=== PATIENT | male | born 1985 | race Caucasian/White ===

== ENCOUNTER 2017-03-14 01:01 | Emergency (ER) | payer OTHER ==
[~2017-03-14] VITALS: Ht 167.6 cm; Wt 108.9 kg
[2017-03-14] MEDS ORDERED: TOPI200T4 PO (01:32)
[2017-03-14] MEDS ORDERED: ZYRT10TA2 PO (01:32)
[2017-03-14] MEDS ORDERED: PRAZ5CAP PO (01:32)
[2017-03-14] MEDS ORDERED: LIDOCAINE 1% MDV 20ML VIAL As Ordered ONE (05:04)
[2017-03-14 05:36] VITALS: BP 115/88
== END 2017-03-14 05:38 | disposition home or self-care (01) ==
LOC: M ED 04:12
DX: S61.412A Laceration without foreign body of left hand, initial encounter (principal); W26.8XXA Contact with other sharp object(s), not elsewhere classified, initial encounter; Y92.59 Other trade areas as the place of occurrence of the external cause; Y93.89 Activity, other specified; Y99.0 Civilian activity done for income or pay; Z79.899 Other long term (current) drug therapy

== ENCOUNTER 2017-03-15 10:35 | Emergency (ER) | payer OTHER ==
[~2017-03-15] VITALS: Ht 167.6 cm; Wt 108.9 kg
[2017-03-15 10:35] VITALS: BP 133/81
[~2017-03-15 10:35] MED LIST: PRAZ5CAP PO; TOPI200T4 PO; ZYRT10TA2 PO
== END 2017-03-15 11:09 | disposition home or self-care (01) ==
LOC: M ED 10:54
DX: Z48.02 Encounter for removal of sutures (principal); R51 Headache; Z79.899 Other long term (current) drug therapy; F32.9 Major depressive disorder, single episode, unspecified; J30.9 Allergic rhinitis, unspecified

== ENCOUNTER → 2017-06-06 | Outpatient (REF) | payer OTHER ==
[~2017-06-06] MED LIST changes: -TOPI200T4 PO; +TOPI200T7 PO
== END ==
LOC: M WUC 11:44
PROVIDERS: ATTEND Physician Assistant
DX: L02.416 Cutaneous abscess of left lower limb (principal)

== ENCOUNTER → 2018-03-13 | Outpatient (REF) | payer OTHER | LOC: M LAB REF 09:15 | DX: L02.415 Cutaneous abscess of right lower limb (principal) ==

== ENCOUNTER → 2019-01-07 | Outpatient (CLI) | payer OTHER ==
[~2019-01-07] MED LIST changes: +ZYRT10CA5 PO; -ZYRT10TA2 PO
--- NOTE | 2019-01-07 15:40 | REP ---
PARTIAL LUMBAR SPINE, THREE VIEWS: HISTORY: Back pain. There is no acute fracture or subluxation. The L4-5 intervertebral disc is decreased in height consistent with disc degeneration. IMPRESSION: Degenerative change as described above. Electronically Signed by Denis Galvan MD 01/07/2019 03:44 P
== END ==
LOC: M WUC 15:13
PROVIDERS: ATTEND Physician Assistant
DX: M51.36 Other intervertebral disc degeneration, lumbar region (principal); M54.5 Low back pain

== ENCOUNTER → 2019-08-30 | Outpatient (CLI) | payer OTHER ==
--- NOTE | 2019-08-30 19:40 | REP ---
Nasal bone series: Three views. History: Injury. Findings: Maxillary sinus, orbital margins, frontal sinuses, nasal bone appear intact on the Wagoner view. Lateral views demonstrate no evidence of nasal bone fracture. The inferior maxillary spine is intact. Impression: Negative nasal bone radiographs. Electronically Signed by Ruy Cameron MD 08/30/2019 07:31 P
== END ==
LOC: M WUC 18:19
PROVIDERS: ATTEND Physician Assistant
DX: S00.33XA Contusion of nose, initial encounter (principal); X58.XXXA Exposure to other specified factors, initial encounter; Y92.9 Unspecified place or not applicable

== ENCOUNTER 2019-09-15 10:40 | Emergency (ER) | payer OTHER ==
[~2019-09-15] VITALS: Ht 167.6 cm; Wt 109.9 kg
[2019-09-15 10:41] VITALS: BP 129/83
[2019-09-15] MEDS ORDERED: GABA-1171 PO (10:47)
[2019-09-15] MEDS ORDERED: LAMO200T2 PO (10:47)
[2019-09-15] MEDS ORDERED: MONT10TA2 PO (10:47)
[2019-09-15] MEDS ORDERED: HYDR-3363 PO (10:47)
[2019-09-15] MEDS ORDERED: TRAZ-252 PO (10:47)
[2019-09-15] MEDS ORDERED: GABA-843 PO (10:47)
[2019-09-15] MEDS ORDERED: IBUP-1022 PO (11:11)
--- NOTE | 2019-09-15 11:42 | REP ---
Clinical: Pain. Technique: AP, lateral, bilateral oblique and sunrise views right knee . Findings: The osseous structures and joint spaces are intact and normal. There is no evidence for acute fracture or dislocation. No joint effusion is appreciated. Surrounding soft tissues are unremarkable. No subcutaneous emphysema or radiodense foreign body. Impression: Normal age-appropriate right knee examination. No acute fracture or dislocation. Electronically Signed by Mulugeta Jain MD 09/15/2019 11:34 A
== END 2019-09-15 11:31 | disposition home or self-care (01) ==
LOC: M ED 10:40
DX: S83.421A Sprain of lateral collateral ligament of right knee, initial encounter (principal); X50.1XXA Overexertion from prolonged static or awkward postures, initial encounter; Y92.9 Unspecified place or not applicable; Y93.9 Activity, unspecified; Y99.9 Unspecified external cause status; G89.29 Other chronic pain; Z79.899 Other long term (current) drug therapy

== ENCOUNTER 2020-01-28 19:08 | Emergency (ER) | payer OTHER ==
[~2020-01-28] VITALS: Ht 165.1 cm; Wt 109.1 kg
[~2020-01-28 19:08] MED LIST changes: +GABA-1171 PO; +GABA-843 PO; +HYDR-3363 PO; +IBUP-1022 PO; +LAMO200T3 PO; +MONT10TA4 PO; +TRAZ-252 PO
[2020-01-28] MEDS ORDERED: AMBI5TAB PO (19:20)
--- NOTE | 2020-01-28 19:56 | REP ---
HISTORY: Trauma. FINDINGS: The superior mediastinal structures are midline. The cardiac silhouette is unremarkable in size, shape and position. The diaphragmatic surfaces of the lungs are regular and the costophrenic angles are clear. The pulmonary srivastava are clear. The imaged osseous structures are intact. IMPRESSION: There is no acute cardiopulmonary disease. Electronically Signed by Eladio He DO 01/29/2020 01:18 P
--- NOTE | 2020-01-28 19:58 | REP ---
HISTORY: Trauma. COMPARISON: None. There has been previous ORIF with an internal fixation plate and multiple affixing screws seen affixing an old healed distal fibular fracture. There is no evidence of an acute fracture. There are two smoothly marginated well corticated calcific densities adjacent to the medial tibiotalar joint which could be secondary to loose intraarticular bodies. This needs to be correlated clinically. IMPRESSION: Chronic changes as described above. No evidence of an acute fracture. Electronically Signed by Eladio He DO 01/29/2020 01:18 P
[2020-01-28] MEDS ORDERED: ANEXSIA, NORCO 7.5MG/325MG TABLET(HYDROCODONE/APAP) PO ONE (20:00)
[2020-01-28] MEDS ORDERED: IBUP-1022 PO (20:34)
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
[2020-01-28 21:14] VITALS: BP 119/70
== END 2020-01-28 21:15 | disposition home or self-care (01) ==
LOC: M ED 19:08
DX: M25.572 Pain in left ankle and joints of left foot (principal); W13.2XXA Fall from, out of or through roof, initial encounter; Y92.89 Other specified places as the place of occurrence of the external cause; Y93.89 Activity, other specified; Y99.9 Unspecified external cause status; J30.9 Allergic rhinitis, unspecified; F43.10 Post-traumatic stress disorder, unspecified

== ENCOUNTER → 2020-06-01 | Outpatient (CLI) | payer OTHER ==
[~2020-06-01] MED LIST changes: +AMBI5TAB PO
--- NOTE | 2020-06-01 13:04 | REP ---
Clinical: Abdominal pain. Ventral hernia. Technique: Real time hatch scale ultrasound examination using curved array transducer. Findings: Directed ultrasound examination at the midline subxyphoid region during normal respiration and Valsalva demonstrates no obvious hernia. No abnormal fluid collection or mass lesion identified. Impression: No evidence for hernia or obvious abnormality. Electronically Signed by Mulugeta Jain MD 06/01/2020 12:55 P
== END ==
LOC: M RAD 11:15
PROVIDERS: ATTEND Nurse Practitioner Family
DX: K43.9 Ventral hernia without obstruction or gangrene (principal)

== ENCOUNTER → 2021-01-19 | Outpatient (CLI) | payer OTHER ==
[~2021-01-19] MED LIST changes: +GABA-282 PO; -GABA-843 PO; +MONT10TA10 PO; -MONT10TA4 PO
--- NOTE | 2021-01-19 15:29 | REP ---
INDICATION: SPRAIN COMPARISON: None. TECHNIQUE: AP, lateral, bilateral oblique and sunrise views. FINDINGS: Evidence for prior ACL repair with early degenerative changes. No obvious acute or dislocation is appreciated lateral view cannot exclude suprapatellar effusion. IMPRESSION: Presumed early posttraumatic arthritic changes with evidence for prior ACL repair. Possible suprapatellar effusion. No obvious acute fracture or dislocation appreciated. <Electronically signed by Mulugeta Jain > 01/19/21 [id number]
== END ==
LOC: M WUC 15:12
PROVIDERS: ATTEND Physician Assistant
DX: S83.422A Sprain of lateral collateral ligament of left knee, initial encounter (principal); X58.XXXA Exposure to other specified factors, initial encounter; Y92.9 Unspecified place or not applicable

== ENCOUNTER → 2021-03-04 | Outpatient (CLI) | payer OTHER ==
--- NOTE | 2021-03-04 13:35 | REP ---
INDICATION: SPRAIN LT KNEE ? INTERNAL DERANGEMENT. COMPARISON: Comparison radiographs of the left knee are from January 19, 2021. No comparison MRI study.. TECHNIQUE: Axial, oblique coronal, and oblique sagittal imaging planes utilized. T1, proton density and T2 weighted scans are obtained in the usual fashion with without fat saturation. FINDINGS: Magnetic field susceptibility artifact is noted in the distal femur and proximal tibia associated with anterior cruciate ligament repair. The synovial portion of the tendon graft appears slightly thin than shows some increased signal intensity but is otherwise intact. Osseous tunnels are unremarkable. Cortical and medullary bone signal intensity is otherwise normal. There is a small to moderate-sized joint effusion. No Cordon's cyst is visible. Medial and lateral patellar retinacular structures appear intact. The patellar and quadriceps tendons have an intact appearance. Posterior cruciate ligament is unremarkable. The tibia is aligned somewhat anterior with respect to the femur question laxity of the ACL. There is no evidence of medial or lateral collateral ligament disruption. There is very little medial meniscal material visible consistent with previous meniscectomy. There is some anterior horn meniscal material. A very small amount of posterior horn material is visible. No displaced meniscal material is appreciated. There is an inner free margin tear of the posterior body and posterior horn of the lateral meniscus. There is medial and lateral tibiofemoral compartment chondromalacia moderate in degree. Early tibiofemoral lipping is seen consistent with early osteoarthritic change. Patellar articular cartilage is unremarkable. IMPRESSION: Status post ACL reconstruction. Tendon graft thinning. Joint effusion. Chondromalacia early tibiofemoral osteoarthritis. Post medial meniscectomy change extensively noted. Inner free margin tear posterior body and posterior horn lateral meniscus. <Electronically signed by Francesco Cameron > 03/04/21 [id number]
== END ==
LOC: M PLARAD 12:05
PROVIDERS: ATTEND Physician Assistant
DX: S83.92XD Sprain of unspecified site of left knee, subsequent encounter (principal); M25.462 Effusion, left knee; M94.262 Chondromalacia, left knee; M23.322 Other meniscus derangements, posterior horn of medial meniscus, left knee

== ENCOUNTER → 2021-06-30 | Outpatient (REF) | payer OTHER ==
[2021-06-30 16:32] LABS: HEMATOCRIT 44.9 % (42.0-52.0); MEAN CORPUSCULAR HEMOGLOBIN 29.2 pg (27.0-33.0); MEAN CORPUSCULAR HGB CONC 33.4 g/dl (32.0-36.5); MEAN CORPUSCULAR VOLUME 87.4 fl (80.0-96.0); PLATELET COUNT, AUTOMATED 200 10^3/uL (150-450); RED BLOOD COUNT 5.14 10^6/uL (4.30-6.10); WHITE BLOOD COUNT 4.5 10^3/uL (4.0-10.0)
[2021-06-30 16:33] LABS: BASO % 0.4 % (0.0-1.0); EOS # 0.1 10^3/uL (0.0-0.5); EOS % 1.8 % (0.0-3.0); LYMPH # 1.3 10^3/uL (1.5-5.0); LYMPH % 28.5 % (24.0-44.0); MONO # 0.5 10^3/uL (0.0-0.8); MONO % 10.7 % (2.0-8.0); NEUTROPHILS # 2.6 10^3/uL (1.5-8.5); NEUTROPHILS % 58.2 % (36.0-66.0)
[2021-06-30 17:16] LABS: ALBUMIN 3.8 GM/DL (3.2-5.2); ALT/SGPT 49 U/L (12-78); BILIRUBIN,TOTAL 0.4 MG/DL (0.2-1.0); BLOOD UREA NITROGEN 15 MG/DL (7-18); CALCIUM LEVEL 8.8 MG/DL (8.5-10.1); CARBON DIOXIDE LEVEL 28 MEQ/L (21-32); CHLORIDE LEVEL 106 MEQ/L (98-107); CHOLESTEROL LEVEL 194 MG/DL (<200); CHOLESTEROL RISK RATIO 4.127 (<5); CREATININE FOR GFR 0.96 MG/DL (0.70-1.30); GLOMERULAR FILTRATION RATE > 60.0 (>60); GLUCOSE, FASTING 78 MG/DL (70-100); HDL CHOLESTEROL 47 MG/DL (>40); LDL CHOLESTEROL 119 MG/DL (<100); NON-HDL-C 147 MG/DL; POTASSIUM SERUM 4.2 MEQ/L (3.5-5.1); SODIUM LEVEL 140 MEQ/L (136-145); THYROID STIMULATING HORMONE 0.866 uIU/ML (0.358-3.740); TOTAL PROTEIN 6.9 GM/DL (6.4-8.2); TRIGLYCERIDES LEVEL 138 MG/DL (<150)
== END ==
LOC: M PLALAB 16:05
PROVIDERS: ATTEND Internal Medicine
DX: Z00.00 Encounter for general adult medical examination without abnormal findings (principal)

== ENCOUNTER → 2022-10-13 | Outpatient (REF) | payer OTHER ==
[~2022-10-13] MED LIST changes: -MONT10TA10 PO; +MONT10TA97 PO
== END ==
LOC: M WUC 12:16
PROVIDERS: ATTEND Student in an Organized Health Care Education/Training Program
DX: J02.9 Acute pharyngitis, unspecified (principal)

== ENCOUNTER → 2023-11-03 | Outpatient (REF) | LOC: M EMP 09:48 | PROVIDERS: ATTEND Family Medicine | DX: Z11.52 Encounter for screening for COVID-19 (principal) ==